=== PATIENT | female | born 1955 | race Native Hawaiian/Other Pacific Islander ===

== ENCOUNTER 2018-03-14 21:22 | Emergency (ER) | payer OTHER ==
[~2018-03-14] VITALS: Ht 162.6 cm; Wt 90.7 kg
[~2018-03-14 21:22] MED LIST: BENZ1TAB43 PO; CLARITIN10 M1 PO; DIVA500T2 PO; HALO50IN4 IM; HYDR25TA60 PO; MIRALAX3350 N1 PO; RISP2TAB2 PO; ZIPR20IN IM
[2018-03-14] MEDS ORDERED: DIVA500T2 PO (21:26)
[2018-03-14] MEDS ORDERED: DIVA250T2 PO (21:26)
[2018-03-14] MEDS ORDERED: METO25TA2 PO (21:29)
[2018-03-14] MEDS ORDERED: MOBIC7.5 M1 PO (21:29)
[2018-03-14] MEDS ORDERED: PANTOPRAZOLE 40MG TA PO (21:30)
[2018-03-14] MEDS ORDERED: RISP25IN IM (21:31)
[2018-03-14] MEDS ORDERED: RISP50IN IM (21:32)
[2018-03-14] MEDS ORDERED: RISP0.5T2 PO (21:33)
[2018-03-14] MEDS ORDERED: [UNRECOGNIZED DRUG - OTHER] PO (21:33)
[2018-03-14 21:43] LABS: PLATELET COUNT 166 K/uL (152-353)
[2018-03-14 21:47] LABS: POTASSIUM 3.8 mmol/L (3.6-5.2)
[2018-03-14 22:39] VITALS: BP 155/77; TEMP 97.8
[2018-03-14] MEDS ORDERED: RISP2TAB2 PO (23:41)
[2018-03-14] MEDS ORDERED: TYLENOL325 MG PO (23:52)
[2018-03-14] MEDS ORDERED: HI-CAL PO (23:53)
[2018-03-14] MEDS ORDERED: SENNOSIDES8.6 MG PO (23:57)
== END 2018-03-14 22:43 | disposition other institution (70) ==
LOC: ED 21:22
DX: R46.89 Other symptoms and signs involving appearance and behavior (principal); G31.01 Pick's disease; F02.81 Dementia in other diseases classified elsewhere, unspecified severity, with behavioral disturbance; Z04.6 Encounter for general psychiatric examination, requested by authority
CPT/HCPCS: 36415; 80053; 85027; 93005; 99283

== ENCOUNTER 2020-08-06 19:23 | Emergency (ER) | payer OTHER ==
[~2020-08-06] VITALS: Ht 162.6 cm; Wt 79.0 kg
[~2020-08-06 19:23] MED LIST changes: +DIVA250T2 PO; +HI-CAL PO; +METO25TA2 PO; +MOBIC7.5 M1 PO; +PANTOPRAZOLE 40MG TA PO; +RISP0.5T2 PO; +RISP25IN IM; +RISP50IN IM; +SENNOSIDES8.6 MG PO; +TYLENOL325 MG PO; +[UNRECOGNIZED DRUG - OTHER] PO
[2020-08-06 20:42] LABS: PLATELET COUNT 200 K/uL (152-353)
[2020-08-06 21:48] VITALS: BP 146/54; TEMP 98.3
[2020-08-07] MEDS ORDERED: TYLENOL325 MG PO (00:34)
[2020-08-07] MEDS ORDERED: LINZESS145 MCG PO (00:36)
[2020-08-07] MEDS ORDERED: ALUM-67 PO (00:41)
[2020-08-07] MEDS ORDERED: ZYPREXA ZYDI15 MG (00:43)
[2020-08-07] MEDS ORDERED: POTA10CA3 PO (00:48)
[2020-08-07] MEDS ORDERED: VITAMIN D320 MCG PO (00:50)
[2020-08-07] MEDS ORDERED: LORA0.5T17 PO (00:55)
[2020-08-07] MEDS ORDERED: BACLOFEN10 MG (00:58)
[2020-08-07] MEDS ORDERED: BUMEX1 MG PO (00:59)
[2020-08-07] MEDS ORDERED: CLON0.5T36 PO (01:01)
[2020-08-07] MEDS ORDERED: CORRECTOL100 MG PO (01:03)
[2020-08-07] MEDS ORDERED: INVEGA6 MG PO (01:04)
[2020-08-07] MEDS ORDERED: SM MELATONIN5 MG PO (01:06)
[2020-08-07] MEDS ORDERED: MONT10TA PO (01:14)
[2020-08-07] MEDS ORDERED: CETI10TA PO (01:26)
== END 2020-08-06 21:56 | disposition still patient (30) ==
LOC: ED 19:23
PROVIDERS: Emergency Medicine Emergency Medical Services
DX: F41.8 Other specified anxiety disorders (principal); F03.90 Unspecified dementia, unspecified severity, without behavioral disturbance, psychotic disturbance, mood disturbance, and anxiety; Z11.59 Encounter for screening for other viral diseases; Z04.6 Encounter for general psychiatric examination, requested by authority
CPT/HCPCS: 36415; 80053; 85027; 87635; 93005; 99283; 99285; U0003

== ENCOUNTER 2022-06-21 17:00 | Emergency (ER) | payer OTHER ==
[~2022-06-21] VITALS: Ht 163.8 cm; Wt 86.6 kg
[2022-06-21 17:00] VITALS: BP 175/84; TEMP 98
[~2022-06-21 17:00] MED LIST changes: +ACET-206 PO; +ALUM-67 PO; +BACLOFEN10 MG; +BUMEX1 MG PO; +CETI10TA PO; +CHOL100034 PO; +CLON0.5T36 PO; +CORRECTOL100 MG PO; +DIVA250T PO; +DIVALPROEX500 MG PO; +INVEGA6 MG PO; +LINZESS145 MCG PO; +LORA0.5T17 PO; +MAGNSUS68 PO; +METO-837 PO; +MONT10TA PO; +OLANZAPINE10 MG PO; +OLANZAPINE5 MG PO; +PALI3TAB PO; +POTA10CA3 PO; +SM MELATONIN5 MG PO; +VITAMIN D320 MCG PO; +ZYPREXA ZYDI15 MG
[2022-06-21 17:52] LABS: PLATELET COUNT 266 K/uL (152-353)
[2022-06-21 18:04] LABS: POTASSIUM 3.9 mmol/L (3.6-5.2)
[2022-06-21] MEDS ORDERED: AMANTADINE HYD PO (19:27)
[2022-06-21] MEDS ORDERED: CETI10TA PO (19:29)
[2022-06-21] MEDS ORDERED: CALCET PO (19:29)
[2022-06-21] MEDS ORDERED: [UNRECOGNIZED DRUG - CODE] PO (19:30)
[2022-06-21] MEDS ORDERED: CLONIDINE HYDR0.1 M2 PO (19:31)
[2022-06-21] MEDS ORDERED: IRON325 MG PO (19:32)
[2022-06-21] MEDS ORDERED: MIRALAX17 GM PO (19:33)
[2022-06-21] MEDS ORDERED: MELATONIN5 M2 PO (19:34)
[2022-06-21] MEDS ORDERED: LOSA50TA PO (19:34)
[2022-06-21] MEDS ORDERED: METO-837 PO (19:35)
[2022-06-21] MEDS ORDERED: FISH OIL500 M1 PO (19:36)
[2022-06-21] MEDS ORDERED: MONT10TA PO (19:37)
[2022-06-21] MEDS ORDERED: PANTOPRAZOLE 40MG TA PO (19:38)
[2022-06-21] MEDS ORDERED: MACRODANTIN100 M1 PO (19:38)
[2022-06-21] MEDS ORDERED: TEMA15CA19 PO (19:42)
[2022-06-21] MEDS ORDERED: RISP25IN IM (19:42)
[2022-06-21] MEDS ORDERED: BENZ1TAB43 PO (19:43)
[2022-06-21] MEDS ORDERED: LORA1TAB17 PO (19:45)
[2022-06-21] MEDS ORDERED: MEMA5TAB PO (19:45)
[2022-06-21] MEDS ORDERED: TRILEPTAL150 MG PO (19:46)
[2022-06-21] MEDS ORDERED: PERPHENAZINE4 MG PO (19:47)
[2022-06-21] MEDS ORDERED: TRAMADOL HYDROC50 MG PO (19:48)
[2022-06-21] MEDS ORDERED: IBUPROFEN 200200 MG PO (19:49)
[2022-06-21] MEDS ORDERED: BIOTIN5000 MCG PO (20:26)
[2022-06-21] MEDS ORDERED: CO Q 10100 MG PO (20:27)
== END 2022-06-21 18:30 | disposition still patient (30) ==
LOC: ED 17:00
PROVIDERS: Emergency Medicine
DX: F25.8 Other schizoaffective disorders (principal); R45.1 Restlessness and agitation; Z11.52 Encounter for screening for COVID-19; Z04.6 Encounter for general psychiatric examination, requested by authority
CPT/HCPCS: 80053; 81002; 85027; 87635; 93005; 99283; U0003

== ENCOUNTER 2023-05-27 18:27 | Emergency (ER) | payer OTHER ==
[~2023-05-27] VITALS: Ht 162.6 cm; Wt 86.2 kg
[2023-05-27 18:27] VITALS: TEMP 98
[~2023-05-27 18:27] MED LIST changes: +AMANTADINE HYD PO; +BIOTIN5000 MCG PO; +CALCET PO; +CLONIDINE HYDR0.1 M2 PO; +CO Q 10100 MG PO; +CONGENTIN 1MG TAB PO; +FERROUS SULF325 MG PO; +FISH OIL500 M1 PO; +IBUPROFEN 200200 MG PO; +IRON325 MG PO; +LORA1TAB17 PO; +LOSA50TA PO; +MACRODANTIN100 M1 PO; +MELATONIN MAXIMU5 MG PO; +MELATONIN5 M2 PO; +MEMA5TAB PO; +MIRALAX 17GM PAK PO; +MIRALAX17 GM PO; +MOTRIN 400MG TAB PO; +OXCARBAZEPIN300 MG PO; +PERPHENAZINE4 MG PO; +RISP1TAB PO; +TEMA15CA19 PO; +TRAMADOL HYDROC50 MG PO; +TRILEPTAL150 MG PO; +[UNRECOGNIZED DRUG - CODE] PO
[2023-05-27 18:56] VITALS: BP 194/84
[2023-05-27 19:07] LABS: POTASSIUM 3.6 mmol/L (3.6-5.2)
[2023-05-27 19:20] LABS: PLATELET COUNT 268 K/uL (152-353)
[2023-05-28] MEDS ORDERED: LOSA50TA PO (10:08)
[2023-05-28] MEDS ORDERED: CLON0.1T16 PO (10:09)
[2023-05-28] MEDS ORDERED: METO50TA63 PO (10:17)
[2023-05-28] MEDS ORDERED: MONT10TA PO (10:17)
[2023-05-28] MEDS ORDERED: OXCARBAZEPIN150 MG PO (10:19)
[2023-05-28] MEDS ORDERED: ACID CONTROL20 MG PO (10:22)
[2023-06-16] MEDS ORDERED: FAMOTIDINE20 MG PO (10:39)
[2023-06-16] MEDS ORDERED: ACET-206 PO (10:39)
[2023-06-16] MEDS ORDERED: CETI10TA PO (10:39)
[2023-06-16] MEDS ORDERED: CLON0.1T16 PO (10:39)
[2023-06-16] MEDS ORDERED: LORA1TAB17 PO (10:40)
[2023-06-16] MEDS ORDERED: FERROUS SULF325 MG PO (10:40)
[2023-06-16] MEDS ORDERED: LOSA50TA PO (10:40)
[2023-06-16] MEDS ORDERED: MONT10TA PO (10:41)
[2023-06-16] MEDS ORDERED: METO50TA63 PO (10:41)
[2023-06-16] MEDS ORDERED: MAGNSUS68 PO (10:41)
[2023-06-16] MEDS ORDERED: MEMA5TAB PO (10:41)
[2023-06-16] MEDS ORDERED: OLANZAPINE5 MG PO (10:42)
[2023-06-16] MEDS ORDERED: OXCARBAZEPIN300 MG PO (10:42)
[2023-06-16] MEDS ORDERED: OXCARBAZEPIN150 MG PO (10:43)
== END 2023-05-27 20:30 | disposition other institution (70) ==
LOC: ED 18:27
PROVIDERS: Family Medicine
DX: F29 Unspecified psychosis not due to a substance or known physiological condition (principal); Z02.79 Encounter for issue of other medical certificate
CPT/HCPCS: 36415; 80053; 81002; 84484; 85027; 93005; 96372; 99284; J0360